=== PATIENT | female | born 1970 | race Caucasian/White ===

== ENCOUNTER 2016-08-22 23:15 | Emergency (ER) | payer MEDICAID ==
[~2016-08-22] VITALS: Ht 165.1 cm; Wt 63.0 kg
[2016-08-22 23:27] VITALS: BP 112/77
--- NOTE | 2016-08-23 00:23 | NUR ---
PT TAKEN TO BED 4
--- NOTE | 2016-08-23 00:40 | NUR ---
Patient being evaluated by at bedside.
--- NOTE | 2016-08-23 00:41 | NUR ---
46Y/F PATIENT PRESENTS TO ED WITH C/O BOTH EYE REDNESS WITH D/C X1 DAY . NO FEVER; SKIN IS PINK/WARM/DRY, BOTH EYE REDNESS WITH DISCHARGE; AAOX4 WITH EVEN AND STEADY GAIT; LUNGS CLEAR BL; HR EVEN AND REGULAR; PT DENIES ANY FEVER, CP, SOB, OR COUGH AT THIS TIME; PATIENT STATES PAIN OF 4/10 AT THIS TIME; VSS; PATIENT POSITIONED FOR COMFORT; HOB ELEVATED; BEDRAILS UP X2; BED DOWN. ER MD MADE AWARE OF PT STATUS.
--- NOTE | 2016-08-23 01:10 | NUR ---
Patient discharged with v/s stable. Written and verbal after care instructions given and explained. Patient alert, oriented and verbalized understanding of instructions. Ambulatory with steady gait. All questions addressed prior to discharge. ID band removed. Patient advised to follow up with PMD. Rx of POLYMYCIN B SULFATE/TRIMETHOPRIM SULFATE [id number] given. Patient educated on indication of medication including possible reaction and side effects. Opportunity to ask questions provided and answered.
[2016-08-23 01:17] VITALS: BP 115/68
== END 2016-08-23 01:10 | disposition home or self-care (01) ==
LOC: MED 23:15
DX: H10.9 Unspecified conjunctivitis (principal)
CPT/HCPCS: 99283

== ENCOUNTER 2023-10-30 17:43 | Emergency (ER) | payer MEDICAID ==
[~2023-10-30] VITALS: Ht 154.9 cm; Wt 76.2 kg
[2023-10-30 18:06] VITALS: BP 118/65; PULSE 82; RESP 18; TEMP 98.2; O2SAT 98
[2023-10-30] MEDS: KETOROLAC 30 MG/ML VIAL IM ONE (19:42)
[2023-10-30] MEDS: LIDOCAINE 5% 1 EA PATCH TP ONE (19:43)
[2023-10-30] MEDS ORDERED: IBUP-2213 PO (20:07)
== END 2023-10-30 22:30 | disposition home or self-care (01) ==
LOC: MED 17:43
DX: M25.512 Pain in left shoulder (principal); M54.6 Pain in thoracic spine; Z79.899 Other long term (current) drug therapy
CPT/HCPCS: 96372; 99283; J1885

== ENCOUNTER 2023-11-09 13:07 | Emergency (ER) | payer MEDICAID ==
[~2023-11-09] VITALS: Ht 165.1 cm; Wt 63.5 kg
[~2023-11-09 13:07] MED LIST: IBUP-2213 PO
[2023-11-09 13:21] VITALS: BP 120/47; PULSE 76; RESP 16; TEMP 97.7; O2SAT 98
[2023-11-09 13:45] VITALS: O2SAT 98
[2023-11-09] MEDS: MECLIZINE 25 MG TAB PO ONE (13:51)
[2023-11-09] MEDS ORDERED: MECL-303 PO (14:28)
[2023-11-09 14:42] VITALS: BP 121/49; PULSE 65; RESP 18; O2SAT 98
== END 2023-11-09 14:41 | disposition home or self-care (01) ==
LOC: MED 13:07
DX: R42 Dizziness and giddiness (principal); Z79.899 Other long term (current) drug therapy
CPT/HCPCS: 99282; J8597